=== PATIENT | female | born 1955 | race Caucasian/White ===

== ENCOUNTER → 2019-06-30 | Outpatient (CLI) | payer OTHER ==
--- NOTE | 2019-07-01 10:37 | KCIC ---
MRI TMJ bilaterally HISTORY: Right TMJ pain and locking and chronic bilateral clicking and pain possible injury from sports or trauma Multi sequential imaging of the TMJs was performed without contrast FINDINGS: On the left the TMJ appears normal. The disc appears normal and has normal movement. There is normal anterior translation of the mandibular head on the left in the open-mouth view. On the right there is marked deformity of the mandibular head. The disc appears somewhat frayed and the disc remains anterior to the mandibular head in both open and closed position. The right mandibular head translates only partially in the open-mouth view. There is normal marrow signal. IMPRESSION: 1. Normal TMJ on the left. 2. 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 The mandibular head on the right only partially translates. End impression Electronically signed by: Azar Gaxiola III, MD (07/01/2019 10:34 AM) [id number]
== END | disposition home or self-care (01) ==
LOC: KCIC MRI 09:52
PROVIDERS: ATTEND Family Medicine
DX: M26.69 Other specified disorders of temporomandibular joint (principal)
CPT/HCPCS: 70336